=== PATIENT | male | born 1985 | race Two or more races ===

== ENCOUNTER 2018-09-21 23:34 | Emergency (ER) | payer MEDICAID ==
[~2018-09-21] VITALS: Ht 180.3 cm; Wt 81.0 kg
[2018-09-22] MEDS ORDERED: OLANZAPINE 5MG TABLET PO SCH (01:45)
[2018-09-22] MEDS ORDERED: LIDOCAINE HCL/PF 1% 10 MG/ML 5ML VIAL IJ ONE (01:45)
[2018-09-22] MEDS ORDERED: TETANUS, DIPHTHERIA, PERTUSSIS VAC/PF 0.5ML (>7YR OLD) IM ONE (01:45)
[2018-09-22 02:06] LABS: BASOPHILS % 1.1 % (0.0-2.0); EOSINOPHILS % 1.2 % (0.0-5.0); HEMATOCRIT. 45.8 % (42.0-52.0); HEMOGLOBIN. 16.1 g/dL (14.0-18.0); LYMPHOCYTES % 33.3 % (20.0-50.0); MEAN CORPUSCULAR HEMOGLOBIN 30.9 pg (28.0-32.0); MEAN PLATELET VOLUME 7.9 fl (7.4-10.4); MONOCYTES % 7.7 % (2.0-8.0); NEUTROPHILS % 56.7 % (40.0-76.0); PLATELET 239 x1000/uL (130-400); RED BLOOD CELL COUNT 5.21 mill/uL (4.7-6.1); RED CELL DISTRIBUTION WIDTH 14.1 % (11.6-14.6)
[2018-09-22 02:07] LABS: CLARITY URINE CLEAR (CLEAR); COLOR URINE YELLOW (YELLOW); KETONES URINE TRACE (NEGATIVE); LEUKOCYTE ESTERASE URINE TRACE (NEGATIVE); NITRITE URINE NEGATIVE (NEGATIVE); OCCULT BLOOD URINE NEGATIVE (NEGATIVE); PH URINE 5.5 (4.5-8.0); PROTEIN URINE NEGATIVE (NEGATIVE); SPECIFIC GRAVITY URINE 1.021 (1.005-1.030)
[2018-09-22 02:12] LABS: CHLORIDE 105 mEq/L (98-107)
[2018-09-22 02:15] LABS: ETHANOL BLOOD < 10 mg/dL
[2018-09-22 02:21] LABS: *AMPHETAMINES SCREEN URINE NEGATIVE (NEGATIVE); *BARBITURATES SCREEN URINE NEGATIVE (NEGATIVE); *BENZODIAZEPINES SCREEN URINE NEGATIVE (NEGATIVE); *COCAINE SCREEN URINE NEGATIVE (NEGATIVE)
[2018-09-22 02:23] LABS: CANNABINOID URINE SCREEN NEGATIVE (NEGATIVE); METHADONE URINE SCREEN NEGATIVE (NEGATIVE); OPIATES URINE SCREEN NEGATIVE (NEGATIVE); PHENCYCLIDINE URINE SCREEN NEGATIVE (NEGATIVE)
[2018-09-23 00:30] VITALS: BP 110/74
== END 2018-09-23 01:57 ==
LOC: ER 23:34
DX: S61.511A Laceration without foreign body of right wrist, initial encounter (principal); F32.3 Major depressive disorder, single episode, severe with psychotic features; Z23 Encounter for immunization; X78.9XXA Intentional self-harm by unspecified sharp object, initial encounter; Y93.89 Activity, other specified; Y92.89 Other specified places as the place of occurrence of the external cause; Y99.8 Other external cause status
CPT/HCPCS: 12002; 90471; 90715; 99284; 99285

== ENCOUNTER 2022-04-19 12:49 | Emergency (ER) | payer MEDICAID, OTHER ==
[~2022-04-19] VITALS: Ht 180.3 cm; Wt 90.0 kg
[2022-04-19 13:06] VITALS: BP 153/92
[2022-04-19] MEDS ORDERED: DIVA500T3 PO (13:11)
[2022-04-19] MEDS ORDERED: LURA120T PO (13:11)
[2022-04-19 16:06] LABS: CLARITY URINE CLOUDY (CLEAR); COLOR URINE YELLOW (YELLOW); KETONES URINE TRACE (NEGATIVE); LEUKOCYTE ESTERASE URINE 1+ (NEGATIVE); NITRITE URINE NEGATIVE (NEGATIVE); OCCULT BLOOD URINE 3+ (NEGATIVE); PROTEIN URINE 2+ (NEGATIVE); SPECIFIC GRAVITY URINE 1.028 (1.005-1.030)
[2022-04-19] MEDS ORDERED: CIPR-263 MT (16:57)
[2022-04-24 04:07] LABS: NEISSERIA GONORRHOEAE NAA Negative (Negative)
== END 2022-04-19 17:11 | disposition home or self-care (01) ==
LOC: ER 12:49
DX: N39.0 Urinary tract infection, site not specified (principal); Z20.822 Contact with and (suspected) exposure to COVID-19
CPT/HCPCS: 71045; 81003; 87426; 87491; 87591; 87804; 99284; C9803